=== PATIENT | female | born 1995 | race African-American/Black ===

== ENCOUNTER 2018-10-01 22:37 | Emergency (ER) | payer OTHER, SELFPAY ==
[2018-10-01 22:39] VITALS: BP 151/75; PULSE 86; RESP 18; TEMP 36.4; O2SAT 99; BMI 31.9
--- NOTE | 2018-10-01 22:54 | ED.VISSUMM ---
- ER Visit Summary Date of Service: 10/01/18 Chief Complaint: Right-sided abdominal and back pain History of Present Illness: The patient is a 23 F who presents with abdominal pain since yesterday. She has been having a sharp stabbing pain in the umbilicus radiating around to the right lower abdomen and right back, and now has constant aching pain in the right lower abdomen, the right flank and the right lower back. Patient states the feel of her sweatshirt on her skin exacerbates her pain. She slept poorly last night due to discomfort if she lays on that side and discomfort including. She denies rash, fever, chest pain, shortness of breath, nausea or vomiting, diarrhea or constipation, dysuria or frequency. She states she is afraid to use the bathroom though because she thinks it might hurt. No medical history. Patient does not know if she is ever had chickenpox or if she has had the chickenpox vaccine. She is on oral contraceptive. Physical Examination: Vital signs: afebrile, hemodynamically stable, no hypoxia on room air General: well nourished, well developed, in no distress Skin: warm, dry, no rash, no pallor HEENT: normocephalic and atraumatic; PERRL, EOMI, moist mucous membranes Cardiovascular: regular rate and rhythm without murmurs, no peripheral edema, 2+ pulses all distal extremities Respiratory: No increased work of breathing, lungs are clear to auscultation bilaterally, no rales, rhonchi or wheezing Abdominal: Abdomen is soft, no rash noted, hyperesthesia to light touch on the right lower abdomen, flank and around the midline back. Mild tenderness to deep palpation in the abdominal exam mid lower abdomen with normoactive bowel sounds, no guarding or rebound, no masses MSK: Moves all extremities, no deformities, normal strength Neuro: Awake and alert, oriented ?4. No facial droop, sensation and motor function intact and symmetric Test Results: Abnormal Lab Results 10/01/18 10/01/18 23:02 23:02 Urine Color Yellow Urine Clarity Clear Urine pH 6.0 Ur Specific [place] 1.020 Urine Protein Negative Urine Glucose (UA) Normal Urine Ketones Negative Urine Occult Blood Negative Urine Nitrite Negative Urine Bilirubin Negative Urine Urobilinogen 1 H Ur Leukocyte Esterase 25 H Urine RBC 0 SEEN Urine WBC 0-5 SEEN Ur Squamous Epith Cells 0-5 SEEN Urine Bacteria 0 SEEN Urine Mucus 1+ Urine Test Negative Medications Given Discontinued Medications Acetaminophen (Tylenol) 650 mg PO X1 ONE Stop: 10/01/18 22:54 Last Admin: 10/01/18 23:07 Dose: 650 mg Hydrocodone Bitart/Acetaminophen ([place] 5mg-325mg) 1 tablet PO X1 ONE Stop: 10/01/18 23:54 Last Admin: 10/02/18 00:14 Dose: 1 tablet Acyclovir (Zovirax) 800 mg PO X1 ONE Stop: 10/01/18 23:47 Last Admin: 10/02/18 00:15 Dose: 800 mg Emergency Department Course and Treatment: Patient's complaint of right-sided pain in a bandlike dermatome pattern with exacerbation from her shirt and with hyperesthesia to light touch is concerning for early herpes zoster. Patient does not have any rash at this time, and we discussed that she may develop a rash. Patient will be empirically started on antiviral therapy. She was given Tylenol for her pain currently. Because she did have some lower abdominal tenderness palpation and is afraid urination will hurt, urinalysis was checked and was negative for infection or hematuria. negative. Patient was reevaluated, with hyperesthesia but no rash noted. Her symptoms are very concerning for early zoster, either prior to the rash breaking out or zoster sine herpete. She was started on acyclovir. She was given [place] to use for severe nighttime pain. Patient given return precautions. Discharge home. Treatment Plan: [] Disposition: [] Impression: Early herpes zoster, right abdomen and back, zoster sine herpete This note was generated with [employer] dictation software. It may contain incorrect words, spelling, and punctuation that were not noted in review of the chart prior to signing ED Disposition - Plan for ED Patient: Disposition: Home or Assisted Living Chief Complaint: Abd Pain Instructions: ED Abdominal Pain Unkn Cause, ED Shingles Prescriptions: Hydrocodone Bitart/Apap 5-325 [[place] 5MG-325MG] 1 tab PO Q6H PRN PRN 3 Days #10 tab PRN Reason: Pain Acyclovir [Zovirax] 800 mg PO 5X/DAY #35 tab Referrals: Christopher Taylor MD [STAFF PHYSICIAN] - 3-5 Days Care Physician,No Primary [Primary Care Provider] - Additional Instructions: Your physical examination and description of your pain is most consistent with early shingles, without development of the rash yet. You have been started on antivirals, acyclovir, to treat this. Use [id number] pain medication for mild to moderate pain. You may use [place] for severe or nighttime pain. If you have any change in your condition, such as high fever, uncontrolled nausea or vomiting, diarrhea, chest pain, shortness of breath, or if you develop left-sided abdominal pain, then please be evaluated for another cause of your symptoms. If you have any worsening of your condition or any new concerning symptoms, please return immediately to the emergency department for another evaluation.
--- NOTE | 2018-10-01 22:57 | ED.DCSUM_ITS ---
- ER Visit Summary Date of Service: 10/01/18 Chief Complaint: Right-sided abdominal and back pain History of Present Illness: The patient is a 23 F who presents with abdominal pain since yesterday. She has been having a sharp stabbing pain in the umbilicus radiating around to the right lower abdomen and right back, and now has constant aching pain in the right lower abdomen, the right flank and the right lower back. Patient states the feel of her sweatshirt on her skin exacerbates her pain. She slept poorly last night due to discomfort if she lays on that side and discomfort including. She denies rash, fever, chest pain, shortness of breath, nausea or vomiting, diarrhea or constipation, dysuria or frequency. She states she is afraid to use the bathroom though because she thinks it might hurt. No medical history. Patient does not know if she is ever had chickenpox or if she has had the chickenpox vaccine. She is on oral contraceptive. Physical Examination: Vital signs: afebrile, hemodynamically stable, no hypoxia on room air General: well nourished, well developed, in no distress Skin: warm, dry, no rash, no pallor HEENT: normocephalic and atraumatic; PERRL, EOMI, moist mucous membranes Cardiovascular: regular rate and rhythm without murmurs, no peripheral edema, 2+ pulses all distal extremities Respiratory: No increased work of breathing, lungs are clear to auscultation bilaterally, no rales, rhonchi or wheezing Abdominal: Abdomen is soft, no rash noted, hyperesthesia to light touch on the right lower abdomen, flank and around the midline back. Mild tenderness to deep palpation in the abdominal exam mid lower abdomen with normoactive bowel sounds, no guarding or rebound, no masses MSK: Moves all extremities, no deformities, normal strength Neuro: Awake and alert, oriented ?4. No facial droop, sensation and motor function intact and symmetric Test Results: Abnormal Lab Results 10/01/18 10/01/18 23:02 23:02 Urine Color Yellow Urine Clarity Clear Urine pH 6.0 Ur Specific [place] 1.020 Urine Protein Negative Urine Glucose (UA) Normal Urine Ketones Negative Urine Occult Blood Negative Urine Nitrite Negative Urine Bilirubin Negative Urine Urobilinogen 1 H Ur Leukocyte Esterase 25 H Urine RBC 0 SEEN Urine WBC 0-5 SEEN Ur Squamous Epith Cells 0-5 SEEN Urine Bacteria 0 SEEN Urine Mucus 1+ Urine Test Negative Medications Given Discontinued Medications Acetaminophen (Tylenol) 650 mg PO X1 ONE Stop: 10/01/18 22:54 Last Admin: 10/01/18 23:07 Dose: 650 mg Hydrocodone Bitart/Acetaminophen ([place] 5mg-325mg) 1 tablet PO X1 ONE Stop: 10/01/18 23:54 Last Admin: 10/02/18 00:14 Dose: 1 tablet Acyclovir (Zovirax) 800 mg PO X1 ONE Stop: 10/01/18 23:47 Last Admin: 10/02/18 00:15 Dose: 800 mg Emergency Department Course and Treatment: Patient's complaint of right-sided pain in a bandlike dermatome pattern with exacerbation from her shirt and with hyperesthesia to light touch is concerning for early herpes zoster. Patient does not have any rash at this time, and we discussed that she may develop a rash. Patient will be empirically started on antiviral therapy. She was given Tylenol for her pain currently. Because she did have some lower abdominal tenderness palpation and is afraid urination will hurt, urinalysis was checked and was negative for infection or hematuria. negative. Patient was reevaluated, with hyperesthesia but no rash noted. Her symptoms are very concerning for early zoster, either prior to the rash breaking out or zoster sine herpete. She was started on acyclovir. She was given [place] to use for severe nighttime pain. Patient given return precautions. Discharge home. Treatment Plan: [] Disposition: [] Impression: Early herpes zoster, right abdomen and back, zoster sine herpete This note was generated with [employer] dictation software. It may contain incorrect words, spelling, and punctuation that were not noted in review of the chart prior to signing ED Disposition - Plan for ED Patient: Disposition: Home or Assisted Living Chief Complaint: Abd Pain Instructions: ED Abdominal Pain Unkn Cause, ED Shingles Prescriptions: Hydrocodone Bitart/Apap 5-325 [[place] 5MG-325MG] 1 tab PO Q6H PRN PRN 3 Days #10 tab PRN Reason: Pain Acyclovir [Zovirax] 800 mg PO 5X/DAY #35 tab Referrals: Christopher Tayolr MD [STAFF PHYSICIAN] - 3-5 Days Care Physician,No Primary [Primary Care Provider] - Additional Instructions: Your physical examination and description of your pain is most consistent with early shingles, without development of the rash yet. You have been started on antivirals, acyclovir, to treat this. Use [id number] pain medication for mild to moderate pain. You may use [place] for severe or nighttime pain. If you have any change in your condition, such as high fever, uncontrolled nausea or vomiting, diarrhea, chest pain, shortness of breath, or if you develop left- sided abdominal pain, then please be evaluated for another cause of your symptoms. If you have any worsening of your condition or any new concerning symptoms, please return immediately to the emergency department for another evaluation.
[2018-10-01] MEDS: Acetaminophen 325 MG Tablet 650 MG PO (23:07)
[2018-10-01 23:08] LABS: Bacteria 0 SEEN /hpf (None Seen); Red Blood Cells-Urine 0 SEEN /hpf (0-5)
[2018-10-01 23:10] LABS: Color, Urine Yellow (Yellow); Glucose, Dipstick Normal (Normal); Ketone-Dipstick Negative (Negative); Leukocyte Esterase-Dipstick 25 /ul (Negative); Nitrite-Dipstick Negative (Negative); Occult Blood-Urine Negative /ul (Negative); Protein-Dipstick Negative (Negative); Urine Bilirubin Dipstick Negative (Negative); Urine Clarity Clear (Clear); Urine Urobilinogen 1 mg/dl (Normal)
[2018-10-01 23:11] LABS: Internal QC Validated? YES +Cl - CLEAR BKGD; Pregnancy, Urine Negative Negative
[2018-10-01 23:17] LABS: Squamous Epithelial Cells - UA 0-5 SEEN /hpf (5-10); White Blood Cells 0-5 SEEN /hpf (0-5)
[2018-10-01 23:18] LABS: Mucous, Urine 1+ /hpf (<or=2+)
--- NOTE | 2018-10-01 23:53 | ED.DEP ---
ED Disposition - Plan for ED Patient: Disposition: Home or Assisted Living Chief Complaint: Abd Pain Instructions: ED Abdominal Pain Unkn Cause, ED Shingles Prescriptions: Hydrocodone Bitart/Apap 5-325 [[place] 5MG-325MG] 1 tab PO Q6H PRN PRN 3 Days #10 tab PRN Reason: Pain Acyclovir [Zovirax] 800 mg PO 5X/DAY #35 tab Referrals: Care Physician,No Primary [Primary Care Provider] - Christopher Taylor MD [STAFF PHYSICIAN] - 3-5 Days Additional Instructions: Your physical examination and description of your pain is most consistent with early shingles, without development of the rash yet. You have been started on antivirals, acyclovir, to treat this. Use [id number] pain medication for mild to moderate pain. You may use [place] for severe or nighttime pain. If you have any change in your condition, such as high fever, uncontrolled nausea or vomiting, diarrhea, chest pain, shortness of breath, or if you develop left-sided abdominal pain, then please be evaluated for another cause of your symptoms. If you have any worsening of your condition or any new concerning symptoms, please return immediately to the emergency department for another evaluation.
[2018-10-02] MEDS: HYDROcodone Bitartrate/Apap 5/325 Tablet PO (00:14)
[2018-10-02 00:15] VITALS: BP 148/60; PULSE 78; RESP 20; O2SAT 96
[2018-10-02] MEDS: Acyclovir 800 MG Tablet PO (00:15)
== END 2018-10-02 00:16 | disposition home or self-care (01) ==
PROVIDERS: Emergency Provider Emergency Medicine
DX: B02.9 Zoster without complications (principal); Z72.0 Tobacco use
CPT/HCPCS: 81001; 81025; 99283

== ENCOUNTER 2019-04-01 13:00 | Emergency (ER) | payer MEDICAID, SELFPAY ==
[2019-04-01 13:01] VITALS: BP 118/71; PULSE 105; RESP 18; TEMP 36.4; O2SAT 99; BMI 33.3
--- NOTE | 2019-04-01 14:21 | ED.VISSUMM ---
- ER Visit Summary Date of Service: 04/01/19 Chief Complaint: Nausea, vomiting History of Present Illness: The patient is a 23 F presenting with nausea, vomiting. Patient states this started last night around 7 PM. She states multiple of her friends are ill with similar complaints. She has nausea, vomiting, diarrhea. She had no blood in her stool or emesis. She is 16 weeks . She is G2, P1 Ab1. She had no vaginal bleeding. She complains of mild diffuse abdominal cramping. She had mild intermittent headaches but currently this has resolved. She denies fever. Denies other complaints. Physical Examination: Vitals are stable. Patient is afebrile. Alert no acute distress. HEENT exam is unremarkable. Neck is supple. Lungs are clear and equal bilaterally. Heart is regular rate and rhythm. Abdomen is soft nontender nondistended. No guarding or rebound Extremities are unremarkable. Skin is warm and dry. No focal neurologic deficit. Remainder of exam is unremarkable. Emergency Department Course and Treatment: Patient given IV fluids, Zofran. heart tones 160. Patient is able to tolerate p.o. in the emergency department. She is feeling improved. Advised to follow-up with her [facility]. Advised return to ED if worsening complaints. Disposition: Discharge home Impression: Vomiting in This note was generated with [employer] dictation software. It may contain incorrect words, spelling, and punctuation that were not noted in review of the chart prior to signing ED Disposition - Plan for ED Patient: Instructions: ED Vomiting Diarrhea Nonspecific Ad Prescriptions: Ondansetron [Zofran Odt] 4 mg PO Q8H PRN PRN #10 tablet PRN Reason: Nausea Referrals: Libra Murphy MD [STAFF PHYSICIAN] - Tay Díaz MD [STAFF PHYSICIAN] -
[2019-04-01] MEDS: Ondansetron 4 MG/2 ML Vial IV (14:37)
[2019-04-01] MEDS: 0.9% Normal Saline 1,000 ML 999 ML IV (14:37)
[2019-04-01 15:00] VITALS: BP 108/68; PULSE 78; RESP 16; O2SAT 100
--- NOTE | 2019-04-01 15:29 | ED.DEP ---
ED Disposition - Plan for ED Patient: Instructions: ED Vomiting Diarrhea Nonspecific Ad Prescriptions: Ondansetron [Zofran Odt] 4 mg PO Q8H PRN PRN #10 tablet PRN Reason: Nausea Referrals: Tay Díaz MD [STAFF PHYSICIAN] - Libra Murphy MD [STAFF PHYSICIAN] -
== END 2019-04-01 16:19 | disposition home or self-care (01) ==
LOC: ED 14:23
PROVIDERS: Emergency Provider Emergency Medicine
DX: O21.9 Vomiting of pregnancy, unspecified (principal); O26.892 Other specified pregnancy related conditions, second trimester; R19.7 Diarrhea, unspecified; R10.9 Unspecified abdominal pain; Z3A.16 16 weeks gestation of pregnancy
CPT/HCPCS: 96361; 96374; 99283; J7030; A4216; J2405